=== PATIENT | female | born 1970 | race Caucasian/White ===

== ENCOUNTER 2017-07-07 15:43 | Emergency (ER) | payer OTHER ==
[~2017-07-07] VITALS: Ht 170.2 cm; Wt 54.0 kg
[2017-07-07 15:47] VITALS: BP 105/81
[2017-07-07] MEDS ORDERED: TRAMADOL HCL 50 MG TABLET ONE (16:15)
[2017-07-07] MEDS ORDERED: CARISOPRODOL 350 MG TABLET ONE (16:16)
[2017-07-07] MEDS ORDERED: TRAMADOL HCL 50 MG TABLET PO ONE (16:30)
[2017-07-07] MEDS ORDERED: CARISOPRODOL 350 MG TABLET PO ONE (16:30)
== END 2017-07-07 17:54 | disposition home or self-care (01) ==
LOC: ER 15:47
DX: M54.5 Low back pain (principal); G89.29 Other chronic pain; F32.9 Major depressive disorder, single episode, unspecified; F43.10 Post-traumatic stress disorder, unspecified
CPT/HCPCS: 99283; A4606; Z7610

== ENCOUNTER 2018-05-12 12:07 | Outpatient (CLI) | payer OTHER ==
[2018-05-12] MEDS ORDERED: METOPROLOL TARTRATE INJ 5 MG/5 ML AMPUL ONE (13:09)
[2018-05-12] MEDS ORDERED: IOHEXOL-350 100 ML VIAL IV ONE (13:34)
[2018-05-12] MEDS ORDERED: CT SWABBABLE VALVE TRANS SET 1 EA INFUS.SET MC ONE (13:34)
[2018-05-12] MEDS ORDERED: IV NS 0.9% 250 ML IV ONE (13:34)
== END 2018-05-12 23:59 | disposition home or self-care (01) ==
LOC: CT 12:07
PROVIDERS: ATTEND Family Medicine
DX: R07.9 Chest pain, unspecified (principal)
CPT/HCPCS: 75574; J3490; J7050; Q9967

== ENCOUNTER 2019-05-09 09:54 | Emergency (ER) | payer SELFPAY ==
[~2019-05-09] VITALS: Ht 170.2 cm; Wt 51.3 kg
[2019-05-09 10:03] VITALS: BP 127/81
--- NOTE | 2019-05-09 10:22 | NUR ---
Patient discharged to home in stable condition. Written and verbal after care instructions given. Patient verbalizes understanding of instruction.
== END 2019-05-09 10:22 | disposition home or self-care (01) ==
LOC: ER 10:02
DX: F41.9 Anxiety disorder, unspecified (principal); F32.9 Major depressive disorder, single episode, unspecified; F43.10 Post-traumatic stress disorder, unspecified; Z60.2 Problems related to living alone